=== PATIENT | female | born 1970 | race Caucasian/White ===

== ENCOUNTER 2016-09-19 11:36 | Emergency (ER) | payer OTHER ==
[~2016-09-19] VITALS: Ht 170.2 cm; Wt 63.5 kg
--- NOTE | ~2016-09-19 | US67 ---
[facility] A Service of [facility] & [facility] / [facility] RADIOLOGY TEXT RESULTS PATIENT: TIANA LOUISE LOCATION: [facility] : 68 UNIT #: [id number] AGE: [address]: Tejas Stacy MD SEX: F ORDER DR: [id number] [facility] [address] [place], [place] [address] [id number] E MR#: [id number] Acc #: [id number] NAME: TIANA LOUISE : 1970 SEX: F STUDY DATE/TIME: 09/19/2016 12:54 UNIT: [facility] ROOM: STUDY DESCRIPTION: Gallbladder Attending Physician: Tejas Stacy M.D. Ordering Physician: Tejas Stacy M.D. Primary Care Physician: Zahida Walden M.D. MEDICAL IMAGING REPORT This report is preliminary unless electronic signature is present EXAM Gallbladder sonogram. CLINICAL HISTORY 45-year-old female right upper quadrant pain and nausea x1 month. FINDINGS Real-Time examination demonstrates diffuse increased echogenicity of the liver with decreased through penetration suggesting diffuse fatty infiltration. No focal mass lesions identified. The gallbladder is free of stones or wall thickening. No pericholecystic fluid. No intra or extrahepatic ductal dilatation is identified. Common bile duct measures 2.8 mm. The right kidney demonstrates mild prominence of the renal collecting system. No definite hydronephrosis. Visualized pancreas appears normal. IMPRESSION 1. Diffuse fatty infiltration of the liver. 2. Normal gallbladder by ultrasound. Dictated by... Deanna Nelson M.D. THIS IS AN ELECTRONICALLY VERIFIED REPORT Deanna Nelson M.D. at 09/21/2016 5:11 PM Jose TD: 09/19/2016 19:31 JOB #: [id number] MEDICAL IMAGING REPORT Page 1 of 1 COPY
[~2016-09-19 11:36] MED LIST: EFFEXOR; NO MEDICATIONS
[2016-09-19 12:50] LABS: BASOPHIL# 0.1 X10e3 (0-0.3); BASOPHIL% 0.7 % (0-2.5); DIFF IND YES; EOSINOPHIL% 0.5 % (0.0-7.0); HEMATOCRIT 41.1 % (35.0-45.0); HEMOGLOBIN 14.1 gm/dL (12.0-16.0); LYMPHOCYTE# 2.2 X10e3 (1.0-3.5); LYMPHOCYTE% 29.5 % (17.0-45.0); MEAN CELL VOLUME 106.2 FL (83-96); MEAN CORPUSCULAR HEMOGLOBIN 36.3 PG (28-34); MEAN CORPUSCULAR HGB CONC 34.2 g/dL (30-36); MEAN PLATELET VOLUME 8.8 FL (6.5-11.5); MONOCYTE# 0.8 X10e3 (0-1.0); NEUTROPHIL# 4.3 X10e3 (1.5-7.1); NEUTROPHIL% 58.3 % (40-75); PLATELET COUNT 190 X10e3 (140-420); RED BLOOD COUNT 3.87 X10e (3.90-5.30); RED CELL DISTRIBUTION WIDTH 14.5 % (11.0-15.5); WHITE BLOOD COUNT 7.4 X10e3 (4.0-10.5)
[2016-09-19 13:06] LABS: ANISOCYTOSIS SL; PLATELET ESTIMATE NORMAL (NORMAL)
[2016-09-19 13:16] LABS: ALBUMIN SERUM 4.2 g/dL (3.5-5.0); BILIRUBIN, DIRECT 0.1 mg/dL (0.0-0.2); BILIRUBIN,INDIRECT 0.7 mg/dL (0.0-0.9); BILIRUBIN,TOTAL 0.8 mg/dL (0.2-2.0); CREATININE SERUM 0.6 mg/dL (0.6-1.4); GLOM FILT RATE Estimated 109.3 mL/min (>60); PROTEIN TOTAL SERUM 7.4 g/dL (6.0-8.3)
[2016-09-19 13:17] LABS: POTASSIUM 2.6 mmol/L (3.5-5.1)
== END 2016-09-19 14:15 | disposition home or self-care (01) ==
LOC: CED 11:36
PROVIDERS: Emergency Medicine
DX: E87.6 Hypokalemia (principal); R10.11 Right upper quadrant pain; R11.2 Nausea with vomiting, unspecified; F17.200 Nicotine dependence, unspecified, uncomplicated; Z98.51 Tubal ligation status
CPT/HCPCS: 36415; 76705; 80048; 80076; 82150; 83690; 85025; 96361; 96374; 96376; 99284; J2405